=== PATIENT | male | born 1950 | race African-American/Black ===

== ENCOUNTER 2020-06-21 12:43 | Inpatient (IN) | payer MEDICARE, MEDICAID ==
[~2020-06-21] VITALS: Ht 180.3 cm; Wt 91.3 kg
[2020-06-21] MEDS ORDERED: ALBUTEROL (0.083%) 2.5MG/3ML NEB HHN STA (13:24)
[2020-06-21] MEDS ORDERED: METHYLPREDNISOLONE SOD SUCC 125 MG/2 ML VIAL IV STA (13:24)
[2020-06-21] MEDS ORDERED: IPRATROPIUM BROMIDE (0.02%) 0.5MG/2.5ML NEB HHN STA (13:24)
[2020-06-21] MEDS ORDERED: MAGNESIUM 2 G PREMIX 50 ML IV ONE (13:30)
[2020-06-21 13:45] LABS: BASOPHILS % 0.7 % (0.0-2.0); EOSINOPHILS % 0.8 % (0.0-5.0); HEMOGLOBIN. 12.8 g/dL (14.0-18.0); LYMPHOCYTES % 12.3 % (20.0-50.0); MEAN CORPUSCULAR HEMOGLOBIN 30.8 pg (28.0-32.0); MEAN CORPUSCULAR VOLUME 94.2 fL (80.0-94.0); MEAN PLATELET VOLUME 7.5 fl (7.4-10.4); MONOCYTES % 11.1 % (2.0-8.0); NEUTROPHILS % 75.1 % (40.0-76.0); PLATELET 291 x1000/uL (130-400); RED BLOOD CELL COUNT 4.14 mill/uL (4.7-6.1); RED CELL DISTRIBUTION WIDTH 15.4 % (11.6-14.6)
[2020-06-21] MEDS ORDERED: ACETAMINOPHEN 325MG TABLET PO ONE (13:45)
[2020-06-21 14:01] LABS: CHLORIDE 107 mEq/L (98-107)
[2020-06-21] MEDS ORDERED: FUROSEMIDE 20MG/2ML VIAL IVP ONE (14:30)
[2020-06-21] MEDS ORDERED: CLONIDINE 0.1MG TABLET PO PRN (16:00)
[2020-06-21] MEDS ORDERED: IPRATROPIUM/ALBUTEROL 0.5-3(2.5)MG/3ML NEB HHN PRN (16:00)
[2020-06-21] MEDS ORDERED: DIPHENHYDRAMINE 50MG/ML VIAL IV PRN (16:00)
[2020-06-21] MEDS ORDERED: ONDANSETRON HCL 4MG/2ML INJ IV PRN (16:00)
[2020-06-21] MEDS ORDERED: ENOXAPARIN 40MG/0.4ML SYR SUBCUT SCH (16:30)
[2020-06-21] MEDS: ENOXAPARIN 30MG/0.3ML SYR SUBCUT SCH (17:59)
[2020-06-21 23:03] VITALS: BP 121/77
[2020-06-21 23:05] VITALS: BP 121/77
[2020-06-22] MEDS ORDERED: ALBU6.7H9 IH (01:52)
[2020-06-22] MEDS: ACETAMINOPHEN 325MG TABLET PO PRN (05:10)
[2020-06-22] MEDS: ENOXAPARIN 30MG/0.3ML SYR SUBCUT SCH (05:10)
[2020-06-22 08:00] VITALS: BP 142/82
[2020-06-22] MEDS: FUROSEMIDE 40MG/4ML VIAL IV SCH (09:08)
[2020-06-22 09:30] LABS: HEMOGLOBIN. 13.3 g/dL (14.0-18.0); MEAN CORPUSCULAR HEMOGLOBIN 30.5 pg (28.0-32.0); MEAN CORPUSCULAR VOLUME 94.4 fL (80.0-94.0); MEAN PLATELET VOLUME 8.6 fl (7.4-10.4); PLATELET 306 x1000/uL (130-400); RED BLOOD CELL COUNT 4.34 mill/uL (4.7-6.1); RED CELL DISTRIBUTION WIDTH 15.2 % (11.6-14.6)
[2020-06-22 09:44] LABS: CHLORIDE 106 mEq/L (98-107)
[2020-06-22 09:51] LABS: LDL CHOLESTEROL 125 mg/dL (5-100)
[2020-06-22 09:52] LABS: HDL CHOLESTEROL 62 mg/dL (40-59)
[2020-06-22 12:00] VITALS: BP 139/88
[2020-06-22 16:00] VITALS: BP 129/70
[2020-06-22 19:46] LABS: PLATELET ESTIMATE NORMAL
[2020-06-22 20:00] VITALS: BP_SYST 116; BP_SYST 151; BP_DIAS 77; BP_DIAS 84
[2020-06-23] VITALS: BP 121/73
[2020-06-23] MEDS: IPRATROPIUM/ALBUTEROL 0.5-3(2.5)MG/3ML NEB HHN SCH ×2 (00:50→08:45)
[2020-06-23 04:00] VITALS: BP 121/63
[2020-06-23] MEDS: ACETAMINOPHEN 325MG TABLET PO PRN ×4 (04:53→15:43)
[2020-06-23 07:06] LABS: BASOPHILS % 0.6 % (0.0-2.0); EOSINOPHILS % 3.1 % (0.0-5.0); HEMATOCRIT. 36.5 % (42.0-52.0); LYMPHOCYTES % 21.6 % (20.0-50.0); MEAN CORPUSCULAR VOLUME 94.6 fL (80.0-94.0); MONOCYTES % 14.9 % (2.0-8.0); NEUTROPHILS % 59.8 % (40.0-76.0); PLATELET 322 x1000/uL (130-400); RED BLOOD CELL COUNT 3.86 mill/uL (4.7-6.1); RED CELL DISTRIBUTION WIDTH 15.2 % (11.6-14.6)
[2020-06-23 07:07] LABS: CHLORIDE 101 mEq/L (98-107)
[2020-06-23 07:39] LABS: *AMPHETAMINES SCREEN URINE NEGATIVE (NEGATIVE); *BARBITURATES SCREEN URINE NEGATIVE (NEGATIVE); *BENZODIAZEPINES SCREEN URINE NEGATIVE (NEGATIVE); *COCAINE SCREEN URINE PRESUMTIVE POSITIVE (NEGATIVE); CANNABINOID URINE SCREEN NEGATIVE (NEGATIVE); PHENCYCLIDINE URINE SCREEN NEGATIVE (NEGATIVE)
[2020-06-23 07:40] LABS: METHADONE URINE SCREEN NEGATIVE (NEGATIVE); OPIATES URINE SCREEN NEGATIVE (NEGATIVE)
[2020-06-23 08:19] VITALS: BP 107/81
[2020-06-23] MEDS: FUROSEMIDE 40MG/4ML VIAL IV SCH (09:29)
[2020-06-23] MEDS: ENOXAPARIN 40MG/0.4ML SYR SUBCUT SCH (09:30)
[2020-06-23 12:10] VITALS: BP 147/98
[2020-06-23] MEDS: LISINOPRIL 5MG TABLET PO SCH (14:30)
[2020-06-23 16:00] VITALS: BP 154/64
[2020-06-23 20:00] VITALS: BP 95/65
[2020-06-24] VITALS: BP 113/66
[2020-06-24 04:00] VITALS: BP 117/58
[2020-06-24 06:59] LABS: CHLORIDE 100 mEq/L (98-107)
[2020-06-24 07:05] LABS: PHOSPHORUS 4.3 mg/dL (2.5-4.9)
[2020-06-24 08:00] VITALS: BP 108/68
[2020-06-24] MEDS: FUROSEMIDE 20MG/2ML VIAL IV SCH (08:38)
[2020-06-24] MEDS: ENOXAPARIN 40MG/0.4ML SYR SUBCUT SCH (08:38)
[2020-06-24] MEDS: LISINOPRIL 5MG TABLET PO SCH (08:44)
[2020-06-24 12:00] VITALS: BP 104/61
[2020-06-24 16:00] VITALS: BP 112/64
[2020-06-24 20:00] VITALS: BP 106/66
[2020-06-25] VITALS: BP 112/70
[2020-06-25 04:00] VITALS: BP 124/89
[2020-06-25 07:56] VITALS: BP 107/63
[2020-06-25] MEDS: FUROSEMIDE 20MG/2ML VIAL IV SCH (07:57)
[2020-06-25] MEDS: LISINOPRIL 5MG TABLET PO SCH (07:57)
[2020-06-25] MEDS: ENOXAPARIN 40MG/0.4ML SYR SUBCUT SCH (07:58)
[2020-06-25 12:00] VITALS: BP_SYST 107; BP_SYST 89; BP_DIAS 61; BP_DIAS 63
[2020-06-25] MEDS ORDERED: LISI-186 PO (12:33)
[2020-06-25] MEDS ORDERED: FURO40TA5 MT (12:33)
[2020-06-25] MEDS ORDERED: ATOR20TA65 MT (12:33)
== END 2020-06-25 15:45 | disposition home health service (06) | DRG 133 ==
LOC: ER 12:43 → 8WST 14:28 → EDBEDREQTM 14:34 → EDBEDREQ 14:34 → ENRESERV 20:55
PROVIDERS: ADMIT Internal Medicine; ATTEND Internal Medicine
DX: J96.01 Acute respiratory failure with hypoxia (principal); I11.0 Hypertensive heart disease with heart failure; F17.210 Nicotine dependence, cigarettes, uncomplicated; I42.2 Other hypertrophic cardiomyopathy; J44.9 Chronic obstructive pulmonary disease, unspecified; F14.90 Cocaine use, unspecified, uncomplicated; I27.20 Pulmonary hypertension, unspecified; I50.23 Acute on chronic systolic (congestive) heart failure; Z99.81 Dependence on supplemental oxygen; Z91.19 Patient's noncompliance with other medical treatment and regimen; Z59.0 Homelessness
CPT/HCPCS: 36415; 71045; 80048; 80053; 80061; 80305; 83735; 83880; 84100; 84443; 84484; 85025; 93005; 93306; 93970; 94618; 94640; 99291; J1650; J1940; J2930; J3475